=== PATIENT | female | born 1990 | race Caucasian/White ===

== ENCOUNTER 2019-03-04 20:00 | Inpatient (IN) | payer BC ==
[2019-03-04] MEDS ORDERED: CARBOPROST TROME 250 MCG/ML IM PRN (20:04)
[2019-03-04] MEDS ORDERED: BUTORPHANOL 1 MG/ML INJ IV PRN (20:04)
[2019-03-04] MEDS ORDERED: MIDAZOLAM HCL 2 MG/2 ML INJ IV PRN (20:04)
[2019-03-04] MEDS ORDERED: PROMETHAZINE 25 MG/ML VIAL IM PRN (20:04)
[2019-03-04] MEDS ORDERED: METHYLERGONOVINE 0.2MG/ML AMP IM PRN (20:04)
[2019-03-04] MEDS ORDERED: ZOLPIDEM TARTRATE 5 MG TABLET PO PRN (20:04)
[2019-03-04] MEDS ORDERED: Ringers Lactate 1,000 ML IV PRN (20:04)
[2019-03-04] MEDS ORDERED: MAGNES/ALUMIN/SIMET 30ML UCUP PO PRN (20:04)
[2019-03-04] MEDS ORDERED: PENICILLIN 5 MU in NA CHLORIDE 0.9% 100 ML IV ONE (20:04)
[2019-03-04] MEDS ORDERED: MEPERIDINE HCL 25 MG/0.5 ML IV PRN (20:04)
[2019-03-04] MEDS ORDERED: DIPHENHYDRAMINE 25 MG TAB/CAP PO PRN (20:04)
[2019-03-04 20:37] LABS: Basophils % 0.6 % (0-1.3); Hematocrit 33.4 % (36.0-45.0); Lymphocytes % 27.8 % (15.3-44.8); RBC Red Blood Cell Count 3.69 M/uL (3.86-4.86)
[2019-03-04] MEDS ORDERED: Ringers Lactate 1,000 ML IV SCH (21:00)
[2019-03-04] MEDS ORDERED: OXYTOCIN/LR 20 UNIT/1,000 ML BAG IV SCH (21:00)
[2019-03-04 21:09] LABS: RPR (Rapid Plasma Reagin) NON-REACT (NON-REACT)
[2019-03-04 22:27] VITALS: BMI 24.9
[2019-03-05] MEDS ORDERED: PENICILLIN G POT 5 MU/VIAL IV ONE (00:34)
[2019-03-05] MEDS ORDERED: NA CHLORIDE 0.9% 200 ML IV ONE (00:34)
[2019-03-05] MEDS ORDERED: PENICILLIN 2.5 MU in NA CHLORIDE 0.9% 100 ML IV SCH ×3 (01:00)
[2019-03-05] MEDS ORDERED: ROPIVACAINE HCL 100 ML IV PRN (02:48)
[2019-03-05] MEDS ORDERED: FENTANYL CITR 100 MCG/2 ML IV ONE (02:48)
--- NOTE | 2019-03-05 04:05 | PREOPHP ---
Date of Admission: 03/04/2019 A 28-year-old 3, para 2, 38 weeks and 4 days. Experienced spontaneous rupture of membranes, came to labor and delivery. Noted to be 1 cm according to nurses exam. Posterior -2 station. Clear fluid. Positive beta strep screen. Started on penicillin prophylaxis. She has now had 2 doses. P atient was started on Pitocin for augmentation. An hour ago was noted to be 2 and now is 8 cm, 100% effaced, vertex, 0 station. Patient is requesting epidural. She is being hydrated. Dr. Waite has be en notified, but whether or not he will have time to get here and gets the epidural remains to be jonathan e. She is Rh positive and immune to Rubella. Progressing rapidly. Labor talk given. JULIAN/JESSICA Voice ID: [id number]
[2019-03-05] MEDS ORDERED: DOCUSATE NA/SENNA CONC 1 TAB PO PRN (05:52)
[2019-03-05] MEDS ORDERED: Oxycodone HCl/Acetaminophen 1 TAB TAB PO PRN (05:52)
[2019-03-05] MEDS ORDERED: BISACODYL 10 MG RECTAL SUPP RECT PRN (05:52)
[2019-03-05] MEDS ORDERED: ACETAMINOPHEN 500 MG TAB PO PRN (05:52)
[2019-03-05] MEDS ORDERED: DIPHENHYDRAMINE 25 MG TAB/CAP PO PRN (05:52)
[2019-03-05] MEDS ORDERED: OXYTOCIN/LR 20 UNIT/1,000 ML BAG IV SCH (06:00)
[2019-03-05] MEDS: IBUPROFEN 200 MG TAB PO PRN ×2 (10:20→16:40)
[2019-03-05] MEDS: Oxycodone HCl/Acetaminophen 1 TAB TAB PO PRN ×3 (11:25→19:36)
--- NOTE | 2019-03-05 16:32 | OP ---
Surgeon: Indra Raya MD Indications: A 28-year-old, 3, para 2, at 38 weeks 4 days, came in with ruptured membranes, started on Pitocin augmentation and penicillin prophylaxis as she was beta strep positive. Description Of Procedure: During the labor, received 2 doses of penicillin 5.5 million units initial dose, 2.5 million second dose. At 7 cm, requested and received epidural anesthesia. Second stage o f approximately 30 minutes, delivered an estimated 7-pound plus female, Apgars 9 and 10. No episioto my. No laceration. Schultze delivery of the placenta, which was inspected and noted to be intact an d normal. Less than 150 cc blood loss. The patient tolerated all procedures well. Rh positive, imm une to Rubella. Final Diagnoses: Intrauterine gestation, 38 weeks 4 days with rupture of membranes; 38 weeks 5 days, spontaneous vaginal delivery. Epidural anesthesia. Penicillin prophylaxis. JULIAN/JESSICA Voice ID: [id number] Report ID: [id number]
[2019-03-06] MEDS: IBUPROFEN 200 MG TAB PO PRN (00:20)
[2019-03-06] MEDS: Oxycodone HCl/Acetaminophen 1 TAB TAB PO PRN (04:02)
[2019-03-06 07:53] VITALS: BP 114/75; TEMP 97.4
--- NOTE | 2019-03-06 09:51 | PN ---
Tonia Shin has an epidural now set at 12. She cannot really feel anything, but she can move her leg s, but patient is stuck at 8 cm. We will continue to increase the Pitocin. Do pelvic rocks and hope fully this will not slow her down too much, but it already has stopped the progress at least momentar rufina. JULIAN/JESSICA Voice ID: [id number] Report ID: [id number]
[2019-03-08 20:45] LABS: HBsAG Nonreactive (Nonreactive)
== END 2019-03-06 07:45 | disposition home or self-care (01) | DRG 807 ==
LOC: 2ND-WC 20:00
PROVIDERS: ADMIT Specialist; ATTEND Specialist
PROC: 10E0XZZ Delivery of Products of Conception, External Approach (ICD-10-PCS; principal; 2019-03-05)
DX: O99.824 Streptococcus B carrier state complicating childbirth (principal); Z37.0 Single live birth; Z3A.38 38 weeks gestation of pregnancy
CPT/HCPCS: 36415; 85025; 86592; 86901; 87340; J0595; J2210; J2550; J2590; J2795; J3010; J7120

== ENCOUNTER 2019-04-18 08:56 | Day surgery (SDC) | payer BC ==
--- OUTSIDE RECORDS SUMMARY | 2019-04-18 08:59 | XMS REPORT ---
:1990 [facility] Address [address] [place] [address] Care Team Providers Name Role Phone Unavailable Unavailable Unavailable Payers Payer Name Policy Type Policy Number Effective Date Expiration Date Problems This patient has no known problems. Allergies, Adverse Reactions, Alerts Allergy Allergy Status Severity Reaction(s) Onset Inactive Treating Comments Name Type Date Date Clinician No Known DA Active U 2019-03 Allergies 00:00:0 0 Medications This patient has no known medications. Results Test Description Test Time Test Comments Text Results Atomic Results Result Comments - CT ABD PELVIS W/O CONT 2019-04-15 19:23:00 Name: EDSON MIKE [facility] : 1990 Age/S: 28 / F [address] Unit #: [id number] Loc: [place] [address] Phys: Nelly Navarro MD Acct: [id number] Dis Date: Status: REG ER PHONE #: [phone] Exam Date: 04/15/2019 191 FAX #: Reason: abdominal pain EXAMS: CPT: [id number] CT ABD PELVIS W/O CONT 25921 Site ID: [id number] CLINICAL HISTORY: Abdominal pain TECHNIQUE: Axial images of the abdomen and pelvis were obtained from diaphragm to the pubic symphysis without oral or intravenous contrast. CT dose lowering technique utilized, with adjustment of MA/kV according to patient size and automated exposure control. COMPARISON: None of the abdomen DISCUSSION: The lung bases are clear. The heart size is normal. The liver is normal in size and contour, without focal abnormality. The gallbladder is normally distended, with tiny dependent stones. No biliary ductal dilatation. The spleen, pancreas and adrenal glands are unremarkable. Both kidneys are normal in size. Excreted contrast from CT angiogram chest is present within both collecting systems, no hydronephrosis. Vascular structures are normal in caliber and appearance. The small and large bowel are unremarkable. The appendix appears normal. No abdominal, pelvic or retroperitoneal adenopathy or free fluid. The uterus, adnexa and urinary bladder appear unremarkable. No suspicious bony lesions. IMPRESSION: Tiny layering gallstones, no acute finding at 1923 Reported and signed by: Hu Colvin M.D. PAGE 1 Signed Report (CONTINUED) Name: EDSON MIKE : 1990 Age/S: 28 / F [address] Unit #: [id number] Loc: [place] [address] Phys: Nelly Navarro MD Acct: [id number] Dis Date: Status: REG ER PHONE #: [phone] Exam Date: 04/15/2019 1915 FAX #: Reason: abdominal pain EXAMS: CPT: [id number] CT ABD PELVIS W/O CONT 51836 <Continued> CC: Nelly Navarro MD; Ann OLMOS Technologist:Helene Evans, (R) CTDI: DLP: Trnscb Date/Time: 04/15/2019 (1922) [email or web address] Orig Print D/T: S: 04/15/2019 (1926) PAGE 2 Signed Report - CTA CHEST FOR PE 2019-04-15 18:41:00 Name: EDSON MIKE : 1990 Age/S: 28 / F [address] Unit #: [id number] Loc: [place] [address] Phys: Nelly Navarro MD Acct: [id number] Dis Date: Status: REG ER PHONE #: [phone] Exam Date: 04/15/2019 1829 FAX #: Reason: r/o PE EXAMS: CPT: [id number] [place] [address] [place] angiogram chest with contrast (PE protocol) Location: T18 HISTORY: Abdominal pain and shortness of breath, r/o PE, COMPARISON: None available TECHNIQUE: Multiple axial slices through the chest were obtained during 80mL of Isovue-370 contrast administration for evaluation of the pulmonary arteries. Coronal and sagittal maximum intensity projections were performed and evaluated. One or more of the following dose reduction techniques were used: Automated exposure control, adjustment of the mA and/or kV according to patient size, and/or utilization of iterative reconstruction technique. GFR: Greater than 60, Creatinine: 0.9mg/dL DLP: 366mGy-cm. FINDINGS: Pulmonary arteries: There is adequate opacification of the pulmonary arteries. No filling defects are identified within the pulmonary trunk, main or central segmental pulmonary arteries. No definite filling defects are seen within subsegmental branches. Thoracic aorta: No evidence for aneurysmal dilatation or dissection. Heart: Heart is mildly enlarged. There is no pericardial effusion. Mediastinum: No hilar or mediastinal adenopathy. Lungs: No discrete airspace densities are identified. No nodules or mass lesions. No interlobular septal thickening or bronchiectasis. Airway: The tracheobronchial tree is patent. Pleura: No effusions. Abdomen: No visualized abnormality. Bones: Skeletal structures are unremarkable. IMPRESSION: PAGE 1 Signed Report (CONTINUED) Name: EDSON MIKE [place] : 1990 Age/S: 28 / F [address] Unit #: [id number] Loc: [place] [address] Phys: Nelly Navarro MD Acct: [id number] Dis Date: Status: REG ER PHONE #: [phone] Exam Date: 04/15/2019 4218 FAX #: Reason: r/o PE EXAMS: CPT: [id number] [address] <Continued> No CT evidence for pulmonary embolism, aortic dissection or aneurysm. Visualized intrathoracic contents are unremarkable. at 1841 Reported and signed by: Vladimir New M.D. CC: Nelly Navarro MD; Ann OLMOS Technologist:Helene Evans, RT(R); ... CTDI: DLP: Trnscb Date/Time: 04/15/2019 (1840) [email or web address] Orig Print D/T: S: 04/15/2019 (6998) PAGE 2 Signed Report D-DIMER 2019-04-15 18:01:00 Test Item Value Reference Range Comments D-DIMER (test code=DDIMER) 1294 ng/mLFEU 215-500 COMPREHENSIVE METABOLIC [id number] 17:44:00 Test Item Value Reference Range Comments SODIUM (test code=NA) 140 mmol/L 134-147 POTASSIUM (test code=K) 3.6 mmol/L 3.4-5.0 CHLORIDE (test code=CL) 107 mmol/L 100-108 CARBON DIOXIDE (test code=CO2) 29 mmol/L 21-32 ANION GAP (test code=GAP) 4.0 GAP calc 4.0-15.0 GLUCOSE (test code=GLU) 122 MG/DL 70-110 BLOOD UREA NITROGEN (test code=BUN) 8 MG/DL 7-18 GLOMERULAR FILTRATION RATE (test >=60 max estimate estGFR >60 code=GFR) CREATININE (test code=CREAT) 0.9 MG/DL 0.6-1.0 TOTAL PROTEIN (test code=PROT) 7.6 G/DL 6.4-8.2 ALBUMIN (test code=ALB) 3.9 G/DL 3.4-5.0 GLOBULIN (test code=GLOB) 3.7 GM/dL ALBUMIN/GLOBULIN RATIO (test 1.1 RATIO 1.2-2.2 code=A/G) CALCIUM (test code=CA) 8.7 MG/DL 8.5-10.1 BILIRUBIN TOTAL (test code=BILT) 0.40 MG/DL 0.2-1.2 SGOT/AST (test code=AST) 47 Unit/L 15-37 SGPT/ALT (test code=ALT) 45 Unit/L 12-78 ALKALINE PHOSPHATASE TOTAL (test 98 Unit/L 45-117 code=ALKP) HCG [id number] 17:44:00 Test Item Value Reference Range Comments HCG SERUM (test code=HCG) < 1 mi-IU/ML 0-6 0 - 6 NOT > 6 SUGGESTIVE OF EARLY RISES TWO FOLD EVERY 2 DAYS; SUGGEST RECONFIRMING AFTER 2 DAYS. 150,000-200,[address] TRIMESTER 10,000 - 50,000 2ND & 3RD TRIMESTER URINALYSIS [id number] 17:30:00 Test Item Value Reference Range Comments UA GLUCOSE DIPSTICK (test code=DGLUU) NEGATIVE mg/dL NEG UA BILIRUBIN DIPSTICK (test code=BILU) NEGATIVE mg/dL NEG UA KETONE DIPSTICK (test code=KETU) NEGATIVE mg/dL NEG UA SPECIFIC GRAVITY (test code=SGU) >=1.030 SG 1.005-1.030 UA BLOOD DIPSTICK (test code=MATTY) 1+ mg/DL NEG UA PH DIPSTICK (test code=SERGIO) 5.5 pH UNITS 5.0-7.0 UA PROTEIN DIPSTICK (test code=PROU) NEGATIVE mg/dL NEG UA UROBILINIOGEN DIPSTICK (test code=URO) 0.2 mg/dL <2.0 UA NITRITE DIPSTICK (test code=MILDRED) NEGATIVE SCREEN NEG UA LEUKOCYTE ESTERASE DIPSTICK (test TRACE Leuk/mcL NEGATIVE code=LEUU) Urine Specimen Type: Clean CatchCBC W/AUTO [id number] 17:29:00 Test Item Value Reference Range Comments WHITE BLOOD CELL (test code=WBC) 13.1 K/mm3 3.5-11.0 RED BLOOD CELL (test code=RBC) 4.21 M/mm3 4.70-6.10 HEMOGLOBIN (test code=HGB) 12.2 G/DL 10.4-14.9 HEMATOCRIT (test code=HCT) 38.0 % 31.5-44.1 MEAN CELL VOLUME (test code=MCV) 90.3 Fl 84.5-98.6 MEAN CELL HGB (test code=MCH) 29.0 pg 27.0-34.2 MEAN CELL HGB CONCETRATION (test code=MCHC) 32.1 G/DL 31.5-34.0 RED CELL DISTRIBUTION WIDTH (test code=RDW) 13.7 SD 11.5-14.5 PLATELET COUNT (test code=PLT) 176.0 K/mm3 150-450 MEAN PLATELET VOLUME (test code=MPV) 10.30 fL 7.0-10.5 NEUTROPHIL % (test code=NT%) 72.2 % 40-76 LYMPHOCYTE % (test code=LY%) 19.5 % 20.5-51.1 MONOCYTE % (test code=MO%) 7.3 % 1.7-9.3 EOSINOPHIL % (test code=EO%) 0.9 % 0.0-6.0 BASOPHIL % (test code=BA%) 0.1 % 0.0-2.0 NEUTROPHIL # (test code=NT#) 9.48 K/mm3 1.8-7.6 LYMPHOCYTE # (test code=LY#) 2.6 K/mm3 0.6-3.2 MONOCYTE # (test code=MO#) 1.0 K/mm3 0.3-1.1 EOSINOPHIL # (test code=EO#) 0.1 K/mm3 0.0-0.4 BASOPHIL # (test code=BA#) 0.0 K/mm3 0.0-0.1 MANUAL DIFF REQUIRED (test code=MDIFF) NO DIFF/SCN CRITERIA - XR CHEST 1 [id number] 17:12:00 [facility] [place] : 1990 Age/S: 28 / F [address] Unit #: [id number] Loc: [place] [address] Phys: Nelly Navarro MD Acct: [id number] Dis Date: Status: PRE ER PHONE #: [phone] Exam Date: 04/15/2019 1705 FAX #: Reason: r/o PE EXAMS: CPT: [id number] XR CHEST 1 V 83940 Fluoro Time: DAP (Gy m2): Air Kerma (mGy): HISTORY: chest pain Location code: B2 FINDINGS: Frontal view of the chest demonstrates normal cardiomediastinal silhouette. The trachea is midline. The lungs are clear. There is no effusion or pneumothorax. The bones are intact. IMPRESSION: No acute pulmonary process. at 1712 Reported and signed by: Darrel Apodaca M.D. CC: Nelly Navarro MD; Ann OLMOS PAGE 1 Signed Report Name: EDSON MIKE [place] : 1990 Age/S: 28 / F [address] Unit #: [id number] Loc: [place] [address] Phys: Nelly Navarro MD Acct: [id number] Dis Date: Status: PRE ER PHONE #: [phone] Exam Date: 04/15/2019 1704 FAX #: Reason: r /o PE EXAMS: CPT: [id number] XR CHEST 1 V 85637 Fluoro Time: DAP (Gy m2): Air Kerma (mGy): <Continued> Technologist: Anaya Lau RT(R)(CT) Trnscb Date /Time: 04/15/2019 (6547) [email or web address] Orig Print D/T: S: (5883) PAGE 2 Signed Report
[2019-04-18] MEDS ORDERED: Ringers Lactate 1,000 ML IV ONE (09:32)
[2019-04-18 09:41] LABS: Basophils % 0.7 % (0-1.3); Hematocrit 35.3 % (36.0-45.0); Lymphocytes % 41.6 % (15.3-44.8); MPV 8.9 fL (7.6-11.3)
[2019-04-18 10:22] LABS: Albumin 3.6 g/dL (3.4-5.0); Bilirubin Direct 0.3 mg/dL (0-0.2); Bilirubin Total 0.8 mg/dL (0.2-1.0); Protein, Total 7.2 g/dL (6.4-8.2)
--- NOTE | 2019-04-18 12:31 | RAD REPORT ---
EXAM DESCRIPTION: MRI - Cholangiogram - 04/18/2019 12:12 pm CLINICAL HISTORY: Elevated LFT's COMPARISON: BREAST/AXILLA, COMPLETE dated 03/27/2019; OB Complete dated 09/29/2018 FINDINGS: Three-dimensional MRCP was performed using maximum intensity projection reconstruction on the same work station. No intrahepatic biliary tree dilatation is seen. Moderate focal narrowing is seen at the junction of the left hepatic duct in the proper hepatic duct. The common bile duct is normal caliber without evid ence of retained stone, stricture or mass. The pancreatic duct is not pathologically dilated. Numerous gallstones are present in the gallbladder. There appears to be stone within the cystic duct as well. Limited T2 sequences through the abdomen demonstrates no bulky adenopathy, significant free fluid or abscess. IMPRESSION: No finding to indicate common bile duct stone. Extensive cholelithiasis.
[2019-04-18] MEDS ORDERED: PROPOFOL 200 MG/20 ML VIAL IV ONE (12:49)
[2019-04-18] MEDS ORDERED: ROCURONIUM 50 MG/5 ML VIAL IV ONE (12:49)
[2019-04-18] MEDS ORDERED: FENTANYL CITR 100 MCG/2 ML ONE (12:49)
[2019-04-18] MEDS ORDERED: LIDOCAINE 1% MPF 5 ML VIAL ONE (12:49)
[2019-04-18] MEDS ORDERED: MIDAZOLAM HCL 2 MG/2 ML INJ ONE (12:49)
[2019-04-18] MEDS: CEFOXITIN/SWI 1gm 1 GM/10 ML SYR ONE ×2 (13:02→13:15)
[2019-04-18] MEDS ORDERED: KETOROLAC 30 MG/ML INJ ONE (13:37)
[2019-04-18] MEDS ORDERED: GLYCOPYRROLATE 0.2 MG/ML SYR ONE ×2 (13:37)
[2019-04-18] MEDS ORDERED: NEOSTIGMINE 1 MG/ML -5 ML ONE (13:37)
[2019-04-18] MEDS ORDERED: ONDANSETRON 4 MG/2 ML VIAL ONE ×2 (13:37→14:22)
[2019-04-18] MEDS: HYDROMORPHONE HCL 1 MG/ML INJ ONE ×5 (14:08→14:36)
[2019-04-18 15:10] VITALS: BP 109/72; TEMP 97.4; O2SAT 100
[2019-04-18] MEDS ORDERED: HYDROCODONE/APAP 7.5/325 MG TAB ONE (15:17)
[2019-04-18] MEDS ORDERED: PROMETHAZINE 25 MG/ML VIAL ONE (15:47)
--- NOTE | 2019-04-19 01:15 | OP ---
Date of Procedure: 04/18/2019 Surgeon: Ar Mccoy MD Preoperative Diagnosis: Symptomatic cholelithiasis. Postoperative Diagnosis: Symptomatic cholelithiasis. Procedure: Laparoscopic cholecystectomy. Estimated Blood Loss: Minimal. Specimen: Gallbladder. Findings: As above. Anesthesia: General. Complications: None. Disposition: Patient tolerated the procedure in stable condition, taken to Recovery in good general condition. Brief History: Patient is a 28-year-old female, who has symptomatic cholelithiasis. Preop LFTs done showed an elevated alkaline phosphatase, AST, and ALT. MRCP was done prior to surgery, which was ne gative for any stone in the common bile duct and therefore we proceeded with the surgery. Description Of Procedure: Patient was brought to the OR and placed in supine position. General anes thesia was begun. Patient was prepped and draped in usual sterile fashion. Marcaine 0.5% was infilt rated locally. A 15-blade was used to make a 1 cm infraumbilical midline incision. Subcutaneous tis awais was divided. The fascia was identified and divided. A #1 Vicryl stay suture was placed. Perito do cavity was entered with sharp and blunt dissection. A 12 mm trocar was placed into the peritone al cavity under direct vision. Pneumoperitoneum was established. Three 5 mm trocars were placed, 1 in the epigastrium just to the right of midline and 2 in the right subcostal region. Laparoscopy rev ealed chronic inflammation of the gallbladder with acute component. Fundus retracted superiorly. In fundibulum was identified and retracted inferolaterally. Cystic duct and cystic artery were clearly identified with blunt dissection. Clips placed. Both structures were divided. Cautery was used to remove the gallbladder from the liver bed. Bleeding on the liver bed was controlled with cautery. T he gallbladder was retrieved through the umbilicus via an EndoCatch bag. Right upper quadrant examin ed and no evidence of bleeding or bile leakage appreciated. Subsequently, all trocars were removed u nder direct vision. Stay sutures were tied to each other to reapproximate the fascial defect. Subcu taneous wounds were irrigated, bleeding controlled with cautery. A 3-0 chromic was used to approxima te subcutaneous tissues and dinesh were used to close the skin. Sterile dressing was applied. [place] ent was awakened and taken to Recovery in good general condition. Discharge Note: The patient will go to Day Surgery, then home when stable. Disposition: Home. Condition: Stable. Discharge Instructions: Resume home medications and diet. Activity as tolerated. No heavy lifting. Remove outer dressing in 2 days. Shower. Keep wound clean and dry. Follow up in my office in 1 w poarch. Call for appointment. Tylenol No. 3 one tablet p.o. q.4 p.r.n. pain and incentive spirometry w as ordered. /MODL Voice ID: [id number] Report ID: [id number]
== END 2019-04-18 16:05 | disposition home or self-care (01) ==
LOC: OR 08:56
PROVIDERS: ATTEND Surgery
PROC: 0FT44ZZ Resection of Gallbladder, Percutaneous Endoscopic Approach (ICD-10-PCS; principal; 2019-04-18 10:45)
DX: K80.10 Calculus of gallbladder with chronic cholecystitis without obstruction (principal)
CPT/HCPCS: 85025; 36415; 82150; 84703; 80076; 88304; 74181; 47562; J2704; J2550; J2250; J3010; J1170 ×2; J2710; J7120; J2405 ×2